=== PATIENT | female | born 1965 | race Caucasian/White ===

== ENCOUNTER 2019-11-02 00:13 | Outpatient (CLI) | payer BC, SELFPAY ==
[2019-11-02 16:18] LABS: SARS-CoV-2 RNA PCR Negative
== END 2019-11-02 00:14 | disposition home or self-care (01) ==
PROVIDERS: PCP Family Medicine; Visit Provider Surgery Plastic and Reconstructive Surgery
DX: Z01.818 Encounter for other preprocedural examination (principal); Z11.59 Encounter for screening for other viral diseases
CPT/HCPCS: 87635; C9803; U0003

== ENCOUNTER 2019-11-05 00:19 | Day surgery (SDC) | payer BC, SELFPAY ==
[2019-10-31 09:47] VITALS: BMI 21.4
[2019-11-05 07:08] VITALS: BP 132/74; PULSE 79; RESP 18; TEMP 36.4; O2SAT 100
[2019-11-05] MEDS: LACTATED RINGERS 1,000 ML 30 ML IV CONT ×2 (07:25→10:18)
--- NOTE | 2019-11-05 07:36 | WPDANESEPPF ---
Anes - Initial Pre Proc Eval Procedure: Operation Date: 11/05/19 09:00 Proposed Procedures p Left Breast Fat Grafting - River Toussaint MD Date/Time: 11/05/19 07:36 Surgeon: River Toussaint MD Pre Op Diagnosis: Acquired Breast Deformity L Breast Patient Data Age: 54 Gender: F Height: 5 ft 6.5 in Weight: 61.36 kg Allergies Allergy/AdvReac Type Severity Reaction Status Date / Time No Known Allergies Allergy Verified 11/05/19 07:30 Home Medications Medication Instructions Recorded Confirmed Type Adult Multivitamin (w-lutein) 1 tab-cap PO DAILY 10/31/19 11/05/19 History CoQ-10 1 tab-cap PO DAILY 10/31/19 11/05/19 History ascorbic acid-collagen [Collagen cap PO 11/05/19 History Plus Vitamin C] Laboratory Tests 11/05/19 07:14 Cotinine Pending Patient hx anesthesia problems: post op nausea/vomiting Family hx anesthesia problems: none PMFSH Past Medical History Medical History History of left breast cancer History of radiation therapy Surgical History Surgical History History of bilateral mastectomy History of mastectomy Family History Family History Other Cerebrovascular accident Family history of alcoholism Family history of arthritis Hypertension Social History Social History Smoking status: Never smoker Alcohol intake: current Anes - Eval Final PreProcedure Day of Procedure 11/05/19 07:36 Patient weight: normal Heart: regular rate and rhythm Lungs: clear to auscultation Airway: Mallampati scale class II Neurological: alert and oriented Last oral intake: >/= 8 hours ASA classification: II Emergent: no Anesthetic plan: proceed Anesthesia type and monitoring: general LMA and standard monitoring Other findings: TIVA Informed Consent: The patient's anesthetic plan and its attendant risks and benefits were discussed with the patient/family/POA. Questions were solicited and answers provided to the satisfaction of the patient/family/POA.
[2019-11-05 07:39] LABS: Urine Cotinine NEGATIVE
[2019-11-05] MEDS: SCOPOLAMINE 1.5 MG PATCH TRANSDERM (07:43)
--- NOTE | 2019-11-05 08:22 | PM.IMHP ---
H&P: HPI History of Present Illness Chief complaint: Acquired Breast Deformity L Breast Narrative: Key Robert is a 54 year old female who is here today for additional left breast fat grafting. She is extremely happy with the right side. The left is dramatically improved with just a small area on the inferior aspect that has a decreased volume and a slight depression. She would like proceed with additional fat grafting. Review of Systems Review of Systems: All systems reviewed & are unremarkable except as noted in HPI and below PMFSH Past Medical History Medical History History of left breast cancer History of radiation therapy Surgical History Surgical History History of bilateral mastectomy History of mastectomy Family History Family History Other Cerebrovascular accident Family history of alcoholism Family history of arthritis Hypertension Social History Social History Smoking status: Never smoker Alcohol intake: current Meds Home Medications and Allergies Home Medications Medication Instructions Recorded Confirmed Type Adult Multivitamin (w-lutein) 1 tab-cap PO DAILY 10/31/19 11/05/19 History CoQ-10 1 tab-cap PO DAILY 10/31/19 11/05/19 History ascorbic acid-collagen [Collagen 1 cap PO DAILY 11/05/19 11/05/19 History Plus Vitamin C] Allergies Allergy/AdvReac Type Severity Reaction Status Date / Time No Known Allergies Allergy Verified 11/05/19 07:30 Vital Signs Vital Signs - 24 hr 11/05/19 07:08 Temperature 36.4 C Pulse Rate 79 Respiratory Rate 18 Blood Pressure 132/74 Pulse Oximetry 100 Exam Narrative: Exam Narrative: Left breast with a slight area volume depression mid breast inferior pole. Soft. No masses palpable. Const: General: comfortable, no acute distress, alert and awake; No acute distress Orientation/consciousness: oriented to person HENMT: Head: normal to inspection Ears: external ears normal General nose exam: Normal external nose present Face and sinus: normal facial exam Eyes: General: appearance normal, both eyes and all related structures Periorbital: periorbital findings normal Eyelids: eyelids normal Conjunctivae: conjunctivae normal Neck: Neck: normal visual inspection Chest: Chest palpation & inspection: normal inspection of the chest Resp: Effort & Inspection: normal respiratory effort and able to speak in complete sentences GI: Inspection: normal to inspection Neuro: General: oriented to person Psych: Appearance: grossly normal Mental Status: mental status grossly normal Assessment and Plan Assessment and plan (1) Acquired breast deformity: Code(s): N64.89 - Other specified disorders of breast Status: Acute Assessment and Plan: She would like proceed with additional stage of left breast fat grafting. Donor sites were marked out with her verification today. Risks, benefits, alternatives were discussed in extensive detail. I want to be very realistic about the risks involved as well as expectations. Reviewed consent in detail. Discussed aftercare and what to monitor for. Made sure I answered all questions answered to satisfaction and consent obtained. (2) History of left breast cancer: Code(s): Z85.3 - Personal history of malignant neoplasm of breast Status: Acute (3) History of radiation therapy: Code(s): Z92.3 - Personal history of irradiation Status: Acute (4) History of bilateral mastectomy: Code(s): Z90.13 - Acquired absence of bilateral breasts and nipples Status: Acute
[2019-11-05] MEDS: ceFAZolin 2 GM/D5W 50 ML 2 GM/50 ML BAG IVPB (08:49)
--- NOTE | 2019-11-05 10:09 | SUR.OPER ---
EBL: 110cc
[2019-11-05 10:18] VITALS: BP 88/53; PULSE 65; RESP 12; TEMP 36.1; O2SAT 100
--- NOTE | 2019-11-05 10:25 | P.OP_ITS ---
Procedure Note - Detailed Date of procedure: 11/05/19 Pre-op diagnosis: Acquired Breast Deformity L Breast Post-op diagnosis: same Procedure performed: Reconstruction by other method left breast Description of procedure: Patient was marked in the preoperative holding area with her verification. She was taken to the operating room placed supine on the operating room table. Anesthesia was provided by anesthesiology and she was prepped and draped in a standard sterile fashion. Surgical time-out was taken. Stab incisions were made at bilateral knees, bilateral medial thighs, bilateral flank. This was with a 14 gauge needle. Infiltrated with a tumescent solution gave adequate time for hemostasis. A 3 mm multi hole cannula on suction was used into a gravity separation device. Allowed for adequate separation of the fat from the other components eliminating the inferior and superior aspects retaining only the central adipose tissue. Using a 3 mm cannula I made a 14 gauge stab incision in the left breast. Based on our preoperative markings I injected 70 cc of adipose tissue in multiple planes in passes. Dressings were placed. She tolerated well. She was woken taken the PACU without difficulty. All instrument sponge counts were correct at the end of the case. Anesthesia: GLMA Surgeon: River Toussaint MD Estimated blood loss (mL): 5 Drains: No Packing: No Pathology: none sent Complications: No immediate complications Condition: stable Disposition: PACU Findings: 70 cc of adipose tissue injected the left breast. [place] site was bilateral medial knees, bilateral medial thighs, bilateral flank.
[2019-11-05 10:40] VITALS: BP 100/67; PULSE 72; RESP 14; O2SAT 98
[2019-11-05 10:55] VITALS: BP 113/74; PULSE 68
[2019-11-05 11:25] VITALS: BP 124/63; PULSE 67
[2019-11-05 11:55] VITALS: BP 112/77; PULSE 65
== END 2019-11-05 12:13 | disposition home or self-care (01) ==
PROVIDERS: PCP Family Medicine; Visit Provider Surgery Plastic and Reconstructive Surgery
PROC: (CPT 15769; principal; 2019-11-05 09:00)
DX: Z42.1 Encounter for breast reconstruction following mastectomy (principal); Z85.3 Personal history of malignant neoplasm of breast; Z92.3 Personal history of irradiation; Z90.13 Acquired absence of bilateral breasts and nipples
CPT/HCPCS: 19366; 36415; 80307; A9270; J0131; J0171; J0690; J1940; J2001; J2250; J2405; J2704; J3010; J7120